=== PATIENT | female | born 1955 | race Two or more races ===

== ENCOUNTER 2016-10-26 08:23 | Emergency (ER) | payer BC, OTHER ==
[2016-10-26 08:59] VITALS: BP 142/76; PULSE 84; TEMP 98.9; BMI 19.9
--- NOTE | 2016-10-26 09:23 | PDOC ---
History of Present Illness - General Chief Complaint: Cold Symptoms Stated Complaint: COUGH Time Seen by Provider: 10/26/16 08:46 - History of Present Illness Initial Comments: 10/26/16 09:18 Chief complaint: Cough History of present illness: Patient complains of a productive cough for about one week. Denies shortness of breath. There was some mild left-sided chest pain last night. She has felt feverish but did not take her temperature. She has been on Augmentin for approximately one week. Review of systems: Reviewed and noncontributory Past medical history: Chest pains in the past evaluated with cardiology workup approximately 2 years ago including a contrast MRI which showed clear coronary arteries. Otherwise negative Social/family history reviewed and noncontributory Physical exam: Alert and oriented 3, well-developed well-nourished, no acute distress. No tachypnea or dyspnea as noted. Afebrile, no signs normal including temperature of 98.9, respiratory rate of 16 and unlabored, and O2 saturation of 97% on room air ENT: Mild pharyngeal injection without exudate, swelling, or mass Neck supple without bruit or mass or nodes Chest exam reveals rales at the left base posteriorly, no dullness to percussion , and no fremitus CV S1 and S2 normal without murmur rub or gallop pulses full and symmetric. No JVD or edema Abdomen benign Neurological intact Skin clear, no rash, adequate turgor and mucous membranes Extremities no CCE Impression: Probable viral bronchitis, on Augmentin which should cover any possibility of bacterial pneumonia. No fever or respiratory distress at present. Rales at the left base Plan: Chest x-ray and further medical management depending on results. Past History - Past Medical History Allergies/Adverse Reactions: Allergies Allergy/AdvReac Type Severity Reaction Status Date / Time No Known Allergies Allergy Verified 10/26/16 08:26 Home Medications: Ambulatory Orders Calcium + Vitamin D Tablet 1 tab PO DAILY 06/05/12 Multi-Vitamins 1 tab PO DAILY 06/05/12 Amoxicillin/Potassium Clav [Augmentin 875-125 Tablet] 0.5 tab PO BID 10/26/16 Disorders: Yes (neurogenic bladder) - Immunization History Td Vaccination: Yes Immunization Up to Date: (UNSURE) - Psycho/Social/Smoking Cessation Hx Anxiety: No Suicidal Ideation: No Smoking Status: No Smoking History: Never smoked Have you smoked in the past 12 months: No Number of Cigarettes Smoked Daily: 0 Information on smoking cessation initiated: No Hx Alcohol Use: No Drug/Substance Use Hx: No Substance Use Type: None Hx Substance Use Treatment: No *Physical Exam - Vital Signs Last Vital Signs Temp Pulse Resp BP Pulse Ox 98.9 F 84 16 142/76 97 10/26/16 08:52 10/26/16 08:52 10/26/16 08:52 10/26/16 08:52 10/26/16 08:52 ED Treatment Course - RADIOLOGY Radiology Studies Ordered: Category Date Time Status CHEST PA & LAT [RAD] Stat Radiology 10/26/16 08:46 Taken *DC/Admit/Observation/Transfer Diagnosis at time of Disposition: Upper respiratory infection with cough and congestion - Discharge Dispostion Disposition: HOME Condition at time of disposition: Stable Admit: No - Patient Instructions Printed Discharge Instructions: DI for Viral Upper Respiratory Infection -- Adult, DI for Acute Bronchitis Additional Instructions: Rest, adequate fluids, avoid the cold Return to the emergency room or see primary physician if cough worsens, high fever develops, or there is persistent chest pain or shortness of breath.
== END 2016-10-26 09:33 | disposition home or self-care (01) ==
LOC: FER 08:23
DX: J06.9 Acute upper respiratory infection, unspecified (principal); R05 Cough; R09.89 Other specified symptoms and signs involving the circulatory and respiratory systems
CPT/HCPCS: 71020-TC; 99281-25

== ENCOUNTER 2023-03-28 22:32 | Emergency (ER) | payer OTHER ==
[2023-03-28 22:42] VITALS: BMI 19.9
[2023-03-28 23:03] LABS: HEMATOCRIT 37.8 % (32.4-45.2); HEMOGLOBIN 12.8 G/dL (10.7-15.3); MCH 30.8 pg (25.7-33.7); MCHC 33.8 g/dl (32.0-36.0); MEAN CELL VOLUME 91.2 fl (80-96); MEAN PLT VOLUME 7.3 fl (7.5-11.1); PLATELET COUNT 286.1 10^3/uL (134-434); RBC 4.15 10^6/uL (3.60-5.2); RDW 14.5 % (11.6-15.6); WHITE BLOOD COUNT 12.8 10^3/uL (4.0-10.8)
[2023-03-28] MEDS ORDERED: ONDANSETRON 4 MG/2 ML VIAL IVPUSH ONE ×2 (23:15→23:52)
[2023-03-28 23:18] LABS: PLATELET ESTIMATE SLT INCREASE
[2023-03-28] MEDS ORDERED: ONDANSETRON 4 MG/2 ML VIAL ONE (23:25)
[2023-03-28 23:54] LABS: POTASSIUM 3.6 mmol/L (3.5-5.1)
[2023-03-28 23:56] LABS: CALCIUM 9.4 mg/dL (8.5-10.1)
[2023-03-28 23:57] LABS: ALBUMIN 3.5 g/dl (3.4-5.0)
[2023-03-29] LABS: CREATININE 0.7 mg/dL (0.55-1.3)
[2023-03-29 00:01] LABS: TOT PROT 6.7 g/dl (6.4-8.2)
[2023-03-29 00:02] LABS: BILIRUBIN,TOTAL 0.3 mg/dL (0.2-1)
[2023-03-29] MEDS ORDERED: SODIUM CHLORIDE 1,000 ML IV STA ×2 (00:05→01:33)
[2023-03-29] MEDS ORDERED: ONDANSETRON 4 MG/2 ML VIAL ONE (00:06)
[2023-03-29 06:21] VITALS: BP 112/60; PULSE 77; RESP 16; TEMP 99.2
== END 2023-03-29 07:00 | disposition home or self-care (01) ==
LOC: FER 22:32
PROC: 3E033NZ Introduction of Analgesics, Hypnotics, Sedatives into Peripheral Vein, Percutaneous Approach (ICD-10-PCS; principal; 2023-03-28)
PROC: 3E033NZ Introduction of Analgesics, Hypnotics, Sedatives into Peripheral Vein, Percutaneous Approach (ICD-10-PCS; 2023-03-28)
PROC: 3E0337Z Introduction of Electrolytic and Water Balance Substance into Peripheral Vein, Percutaneous Approach (ICD-10-PCS; 2023-03-29)
DX: R11.2 Nausea with vomiting, unspecified (principal); K52.9 Noninfective gastroenteritis and colitis, unspecified
CPT/HCPCS: 36415; 80053; 83690; 85027; 99284-25